=== PATIENT | female | born 1965 | race Caucasian/White ===

== ENCOUNTER 2016-07-29 01:13 | Emergency (ER) | payer OTHER ==
[~2016-07-29] VITALS: Ht 170.2 cm; Wt 63.5 kg
[2016-07-29] MEDS ORDERED: CELEXA20 MG ORAL (01:17)
[2016-07-29] MEDS ORDERED: PREMARIN0.45 MG ORAL (01:18)
--- NOTE | 2016-07-29 01:27 | Emergency Room Report ---
History of Present Illness General Chief Complaint: Behavioral Complaint Source: Patient (Jeovanny Mason M.D.) Present Illness HPI Patient is brought in by EMS with a psychiatric evaluation team. They were notified that she was in a car and her ex- alleges that she texted people saying "goodbye" and was planning to take an overdose of pills. He stated that she had taken an overdose. She was feeling anxious when paramedics arrived. She denies those allegations. She's had a difficult day with her ex- not telling her her daughter was. She denies suicidal ideation at this time. She does complain of a headache. She states that she is having anxiety attack when the paramedics were there and police were threatening to arrest her and place her on a hold. A psychiatric evaluation worker is considering placing the patient on a 5150. We have conflicting information about the documentation of her threat to herself. The patient states that she is under the care of a psychologist. She lost her coverage with her psychiatrist however she is taking medications of Celexa and Adderall. She was hospitalized one time for 1 day after being placed on a 3-day -old for some misunderstanding. This was within the past this 16 years.. She reports that there was a situation where her daughters being threatened by drug dealers. She was trying to track and her daughter during the day. There is a conflict between her and her ex- regarding the care of her daughter. No URI sy, cough, NVD, dysuria. Post menopausal. No rashes or joint pain. (Jeovanny Mason M.D.) Allergies: Coded Allergies: PENICILLINS (Verified Allergy, Unknown, 07/29/16) Patient History Past Medical History: see triage record Pertinent Family History: other - daughter with eating disorder and bipolar Social History: Reports: drug use - prior, smoking, Denies: alcohol use Social History Narrative , recovering Reviewed Nursing Documentation: PMH: Agreed, PSxH: Agreed (Jeovanny Mason M.D.) Nursing Documentation-PMH History Of Psychiatric Problem: Yes - DEPRESSION,PANIC ATTACK,ANXIETY (Jeovanny Mason M.D.) Review of Systems All Other Systems: negative except mentioned in HPI (Jeovanny Mason M.D.) Physical Exam Vital Signs Date Time Temp Pulse Resp B/P Pulse Ox O2 Delivery O2 Flow Rate FiO2 07/29/16 01:09 98.1 90 18 152/92 98 Room Air Sp02 EP Interpretation: reviewed, normal General Appearance: well appearing, no apparent distress, GCS 15 Head: normocephalic Eyes: bilateral eye PERRL, bilateral eye normal inspection ENT: moist mucus membranes Neck: supple Respiratory: lungs clear, normal breath sounds Cardiovascular #1: regular rate, rhythm Cardiovascular #2: 2+ radial (R) Gastrointestinal: normal inspection, normal bowel sounds, non tender, no mass, non-distended Musculoskeletal: back normal, gait/station normal, normal range of motion Neurologic: alert, oriented x3, grossly normal Psychiatric: mood/affect normal, no suicidal/homicidal ideation Skin: normal inspection, warm/dry (Jeovanny Mason M.D.) Medical Decision Making Diagnostic Impression: Primary Impression: Situational stress Additional Impression: Evaluation of alleged suicidal ideation ER Course The patient presents with possible suicidal ideation. At this point she denies suicide attempt and doesn't want to harm herself. We requested that the director of social services not place the patient on a 5150 at this time. However the patient does need medical evaluation with EKG and labs. Also she complained headache and therefore will be treated with Motrin. She declined taking Ativan saying that she is recovering. Labs remarkable for amphetamine (patient on Adderall). Patient insists she is not suicidal. We will have a director of social services evaluate her in the AM. Patient on medical hold for evaluation by director of social services. She cannot sign out AMA at this time. Patient sleeping. Signed out to Dr. Olson. Laboratory Tests Test 07/29/16 01:23 07/29/16 01:53 Urine Color Yellow Urine Appearance Clear Urine pH 6.0 (4.5-8.0) Urine Specific [place] 1.010 (1.005-1.035) Urine Protein Negative (NEGATIVE) Urine Glucose (UA) Negative (NEGATIVE) Urine Ketones Negative (NEGATIVE) Urine Occult Blood 3+ (NEGATIVE) H Urine Nitrite Negative (NEGATIVE) Urine Bilirubin Negative (NEGATIVE) Urine Urobilinogen Normal MG/DL (0.0-1.0) Urine Leukocyte Esterase Negative (NEGATIVE) Urine RBC 15-20 /HPF (0 - 2) H Urine WBC 0-2 /HPF (0 - 2) Urine Squamous Epithelial Cells Moderate /LPF (NONE/OCC) H Urine Bacteria Few /HPF (NONE) Urine Opiates Screen Negative (NEGATIVE) Urine Barbiturates Screen Negative (NEGATIVE) Phencyclidine (PCP) Screen Negative (NEGATIVE) Urine Amphetamines Screen Positive (NEGATIVE) H Urine Benzodiazepines Screen Negative (NEGATIVE) Urine Cocaine Screen Negative (NEGATIVE) Urine Marijuana (THC) Screen Negative (NEGATIVE) White Blood Count 6.9 K/UL (4.8-10.8) Red Blood Count 4.26 M/UL (4.20-5.40) Hemoglobin 13.4 G/DL (12.0-16.0) Hematocrit 39.8 % (37.0-47.0) Mean Corpuscular Volume 93 FL (80-99) Mean Corpuscular Hemoglobin 31.5 PG (27.0-31.0) H Mean Corpuscular Hemoglobin Concent 33.7 G/DL (32.0-36.0) Red Cell Distribution Width 11.3 % (11.6-14.8) L Platelet Count 238 K/UL (150-450) Mean Platelet Volume 6.9 FL (6.5-10.1) Neutrophils (%) (Auto) 63.1 % (45.0-75.0) Lymphocytes (%) (Auto) 27.9 % (20.0-45.0) Monocytes (%) (Auto) 6.9 % (1.0-10.0) Eosinophils (%) (Auto) 1.4 % (0.0-3.0) Basophils (%) (Auto) 0.7 % (0.0-2.0) Sodium Level 137 mEQ/L (135-145) Potassium Level 3.7 mEQ/L (3.4-4.9) Chloride Level 97 mEQ/L (98-107) L Carbon Dioxide Level 24 mEQ/L (20-30) Anion Gap 16 (5-15) H Blood Urea Nitrogen 13 mg/dL (7-23) Creatinine 0.9 mg/dL (0.5-0.9) Estimate Glomerular Filtration Rate > 60 mL/min (>60) Glucose Level 96 mg/dL (74-106) Calcium Level 8.7 mg/dL (8.6-10.2) Total Bilirubin 0.4 mg/dL (0.0-1.2) Aspartate Amino Transferase (AST) 21 U/L (5-40) Alanine Aminotransferase (ALT) 11 U/L (3-33) Alkaline Phosphatase 50 U/L (35-104) Total Creatine Kinase 113 U/L (26-140) Troponin I < 0.30 ng/mL (<=0.30) Total Protein 6.6 g/dL (6.6-8.7) Albumin 4.4 g/dL (3.5-5.2) Globulin 2.2 g/dL Albumin/Globulin Ratio 2.0 (1.0-2.7) Salicylates Level < 1 mg/dL (10-30) L Acetaminophen Level < 10 ug/mL (10-30) L Serum Alcohol < 10 mg/dL (Jeovanny Mason M.D.) ER Course Received signout from Dr Mason to followup on SW evaluation for this patient. When patient saw SW, she told SW she didnt need anything from SW; she states she was told by Dr Mason she would get a note from him saying that she's not suicidal. We advised patient that we do not provide such a note. Patient was medically cleared and cleared by SW. She continues to deny SI, HI, AVH. No other acute issues in ED Was discharged home (DICKSON OLSON M.D.) EKG Diagnostic Results Rate: normal Rhythm: NSR ST Segments: no acute changes (Jeovanny Mason M.D.) Rhythm Strip Diag. Results EP Interpretation: yes Rhythm: NSR, no PVC's, no ectopy (Jeovanny Mason M.D.) Last Vital Signs Date Time Temp Pulse Resp B/P Pulse Ox O2 Delivery O2 Flow Rate FiO2 07/29/16 09:49 98.1 76 18 128/76 98 Room Air Status: improved (Jeovanny Mason M.D.) Status: improved (DICKSON OLSON M.D.) Disposition: HOME, SELF-CARE Condition: Stable Jeovanny Mason M.D. Jul 29, 2016 01:27 DICKSON OLSON M.D. Jul 29, 2016 09:48
[2016-07-29 02:08] LABS: BASOPHILS % (AUTO) 0.7 % (0.0-2.0); EOSINOPHILS % (AUTO) 1.4 % (0.0-3.0); LYMPHOCYTES % (AUTO) 27.9 % (20.0-45.0); MEAN CORPUSCULAR HEMOGLOBIN 31.5 PG (27.0-31.0); MEAN CORPUSCULAR HGB CONC 33.7 G/DL (32.0-36.0); MEAN CORPUSCULAR VOLUME 93 FL (80-99); MEAN PLATELET VOLUME 6.9 FL (6.5-10.1); MONOCYTES % (AUTO) 6.9 % (1.0-10.0); NEUTROPHILS % (AUTO) 63.1 % (45.0-75.0); PLATELET COUNT 238 K/UL (150-450); RED BLOOD COUNT 4.26 M/UL (4.20-5.40); RED CELL DISTRIBUTION WIDTH 11.3 % (11.6-14.8); WHITE BLOOD COUNT 6.9 K/UL (4.8-10.8)
[2016-07-29 02:14] LABS: APPEARANCE,URINE CLEAR; KETONES,URINE NEGATIVE (NEGATIVE); LEUKOCYTE ESTERASE ,URINE NEGATIVE (NEGATIVE); NITRITE,URINE NEGATIVE (NEGATIVE); PROTEIN,URINE NEGATIVE (NEGATIVE); UROBILINOGEN,URINE NORMAL MG/DL (0.0-1.0)
[2016-07-29 02:15] LABS: BACTERIA,URINE FEW /HPF; RBC,URINE 15-20 /HPF (0 - 2); SQUAMOUS EPITHELIAL CELL,UR MODERATE /LPF (NONE/OCC); WBC,URINE 0-2 /HPF (0 - 2)
[2016-07-29 02:24] LABS: ACETAMINOPHEN < 10 ug/mL (10-30); ALANINE AMINOTRANSFERASE 11 U/L (3-33); ALCOHOL < 10 mg/dL; ANION GAP 16 (5-15); ASPARTATE AMINO TRANSFERASE 21 U/L (5-40); CALCIUM 8.7 mg/dL (8.6-10.2); CARBON DIOXIDE 24 mEQ/L (20-30); CHLORIDE 97 mEQ/L (98-107); CREATININE 0.9 mg/dL (0.5-0.9); GLOMERULAR FILTRATION RATE > 60 mL/min (>60); HEMOLYSIS 4; POTASSIUM 3.7 mEQ/L (3.4-4.9); SODIUM 137 mEQ/L (135-145); TOTAL PROTEIN 6.6 g/dL (6.6-8.7); TROPONIN I < 0.30 ng/mL (<=0.30)
[2016-07-29 04:48] VITALS: BP 136/83
[2016-07-29 09:49] VITALS: BP 128/76
--- NOTE | 2016-07-31 08:46 | Cardiology Report ---
APPROVED REPORT EKG Measurement Heart [id number] Normal sinus rhythm with sinus arrhythmia Voltage criteria for left ventricular hypertrophy Abnormal ECG
== END 2016-07-29 09:49 | disposition home or self-care (01) ==
LOC: EDBD 01:13 → EMR 03:30
DX: F43.8 Other reactions to severe stress (principal); Z88.0 Allergy status to penicillin; F15.90 Other stimulant use, unspecified, uncomplicated; R51 Headache; Z79.899 Other long term (current) drug therapy
CPT/HCPCS: 36415; 80053; 80300; 80329; 81003; 82550; 84484; 85025; 93005; 99284